=== PATIENT | female | born 1985 | race Caucasian/White ===

== ENCOUNTER 2016-10-23 07:26 | Inpatient (IN) | payer MEDICAID, OTHER ==
[~2016-10-23] VITALS: Ht 152.4 cm; Wt 57.2 kg
[2016-10-23] VITALS (30 sets, daily range): BP systolic 85–109; BP diastolic 45–68
[2016-10-23] MEDS ORDERED: SODIUM CHLORIDE 0.9% 1,000 ML IV ONE (07:44)
[2016-10-23] MEDS ORDERED: ONDANSETRON HCL 4MG/2ML VIAL IV ONE (07:45)
[2016-10-23] MEDS ORDERED: MORPHINE SULFATE 4 MG/ML CPJ (NOT FOR IM USE) IV ONE (07:45)
[2016-10-23 08:47] LABS: BASOPHILS % 0.3 % (0.0-2.0); EOSINOPHILS % 1.5 % (0.0-5.0); HEMATOCRIT. 23.2 % (36.0-48.0); HEMOGLOBIN. 7.7 g/dL (12.0-16.0); MEAN CORPUSCULAR VOLUME 90.7 fL (81.0-99.0); MEAN PLATELET VOLUME 7.5 fl (7.4-10.4); MONOCYTES % 9.1 % (2.0-8.0); NEUTROPHILS % 76.1 % (40.0-76.0); PLATELET 308 x1000/uL (130-400); RED BLOOD CELL COUNT 2.55 mill/uL (4.2-5.4)
[2016-10-23 08:56] LABS: INR 1.1; PARTIAL THROMBOPLASTIN TIME 26.2 sec (23.4-31.0); PROTHROMBIN TIME 11.4 sec (9.4-11.6)
[2016-10-23 09:05] LABS: B-HCG QUANTITATIVE 460 mIU/mL (<3); CARBON DIOXIDE 26 mEq/L (21-32); CHLORIDE 110 mEq/L (98-107)
[2016-10-23] MEDS ORDERED: ALBUMIN HUMAN 12.5G/250ML (5%) IV ONE (12:27)
[2016-10-23 12:53] LABS: BASOPHILS % 0.3 % (0.0-2.0); EOSINOPHILS % 0.1 % (0.0-5.0); HEMATOCRIT. 25.2 % (36.0-48.0); HEMOGLOBIN. 8.3 g/dL (12.0-16.0); LYMPHOCYTES % 9.7 % (20.0-50.0); MEAN CORPUSCULAR HEMOGLOBIN 29.8 pg (28.0-32.0); MEAN CORPUSCULAR VOLUME 90.7 fL (81.0-99.0); MEAN PLATELET VOLUME 7.5 fl (7.4-10.4); MONOCYTES % 4.5 % (2.0-8.0); NEUTROPHILS % 85.4 % (40.0-76.0); PLATELET 228 x1000/uL (130-400); RED BLOOD CELL COUNT 2.78 mill/uL (4.2-5.4); RED CELL DISTRIBUTION WIDTH 14.6 % (11.6-14.6)
[2016-10-23 12:57] LABS: CHLORIDE 111 mEq/L (98-107)
[2016-10-23] MEDS ORDERED: FENTANYL CITRATE/PF 50MCG/ML 2ML VIAL ONE (13:02)
[2016-10-23] MEDS ORDERED: MIDAZOLAM HCL 2 MG/2 ML VIAL ONE (13:02)
[2016-10-23 13:04] LABS: CARBON DIOXIDE 20 mEq/L (21-32)
[2016-10-23] MEDS ORDERED: LABETALOL HCL 20MG/4ML CARPUJECT IV PRN ×2 (13:15)
[2016-10-23] MEDS ORDERED: HYDROMORPHONE HCL/PF 2MG/ML CPJ IV PRN (13:15)
[2016-10-23] MEDS ORDERED: ONDANSETRON HCL 4MG/2ML VIAL IV PRN ×3 (13:15→13:45)
[2016-10-23] MEDS ORDERED: MEPERIDINE HCL/PF 25MG/ML CPJ IV PRN ×2 (13:15)
[2016-10-23] MEDS ORDERED: ROCURONIUM BROMIDE 10MG/ML VIAL 5ML IV ONE (13:39)
[2016-10-23] MEDS ORDERED: ETOMIDATE 2MG/ML 10ML VIAL IV ONE (13:39)
[2016-10-23] MEDS ORDERED: SUCCINYLCHOLINE CHLORIDE 200MG/10ML VIAL IV ONE (13:39)
[2016-10-23] MEDS ORDERED: EPHEDRINE SULFATE 50MG/ML VIAL ONE (13:40)
[2016-10-23] MEDS ORDERED: SODIUM CHLORIDE 0.9% 10ML VIAL ONE (13:40)
[2016-10-23] MEDS ORDERED: NEOSTIGMINE METHYLSULFATE 1MG/ML 10 ML VIAL ONE (13:40)
[2016-10-23] MEDS ORDERED: CEFAZOLIN SODIUM 1000MG/VIAL ONE (13:40)
[2016-10-23] MEDS ORDERED: PHENYLEPHRINE HCL 10 MG/ML 1ML (IV VIAL) IV ONE (13:40)
[2016-10-23] MEDS ORDERED: GLYCOPYRROLATE 0.2 MG/ML 2ML VIAL ONE (13:40)
[2016-10-23] MEDS ORDERED: DEXAMETHASONE 4MG/ML 1ML VIAL ONE (13:40)
[2016-10-23] MEDS ORDERED: ONDANSETRON HCL 4MG/2ML VIAL ONE (13:40)
[2016-10-23] MEDS ORDERED: HYDROMORPHONE HCL/PF 2MG/ML CPJ IM PRN ×2 (13:45→18:00)
[2016-10-23] MEDS ORDERED: BISACODYL 10MG SUPP PR PRN (13:45)
[2016-10-23] MEDS ORDERED: HYDROCODONE/ACETAMINOPHEN 5/325MG TABLET PO PRN ×2 (13:45)
[2016-10-23] MEDS: HYDROMORPHONE HCL/PF 2MG/ML CPJ IV PRN ×5 (14:10→21:50)
[2016-10-23 14:21] LABS: INR 1.2; PARTIAL THROMBOPLASTIN TIME 27.2 sec (23.4-31.0); PROTHROMBIN TIME 12.1 sec (9.4-11.6)
[2016-10-23 15:30] LABS: HEMATOCRIT 23.6 % (36.0-48.0); HEMOGLOBIN 7.9 g/dL (12.0-16.0)
[2016-10-23] MEDS: DEXT 5%/LACTATED RINGERS 1,000 ML IV SCH ×2 (16:02→23:03)
[2016-10-23] MEDS ORDERED: KETOROLAC 30MG/ML VIAL IV NR (16:15)
[2016-10-23] MEDS ORDERED: IBUP-2029 PO (16:48)
[2016-10-23] MEDS ORDERED: DOCU-138 PO (16:49)
[2016-10-23] MEDS ORDERED: OXYC-100 PO (16:50)
[2016-10-23] MEDS ORDERED: FERR-63 PO (16:51)
[2016-10-23] MEDS: SIMETHICONE 80MG TABLET CHEW PO SCH ×2 (18:29→20:06)
[2016-10-23] MEDS: DOCUSATE SODIUM 100MG CAPSULE PO SCH (20:06)
[2016-10-23] MEDS ORDERED: DIPHENHYDRAMINE 25MG CAPSULE PO PRN (21:00)
[2016-10-23 23:05] LABS: HEMATOCRIT 21.9 % (36.0-48.0); HEMOGLOBIN 7.4 g/dL (12.0-16.0)
[2016-10-24] VITALS (47 sets, daily range): BP systolic 85–117; BP diastolic 43–76
[2016-10-24] MEDS: HYDROMORPHONE HCL/PF 2MG/ML CPJ IV PRN ×2 (02:33→05:17)
[2016-10-24 05:49] LABS: BASOPHILS % 0.1 % (0.0-2.0); EOSINOPHILS % 0.1 % (0.0-5.0); LYMPHOCYTES % 7.8 % (20.0-50.0); MEAN CORPUSCULAR VOLUME 87.6 fL (81.0-99.0); MEAN PLATELET VOLUME 7.3 fl (7.4-10.4); MONOCYTES % 7.8 % (2.0-8.0); NEUTROPHILS % 84.2 % (40.0-76.0); PLATELET 255 x1000/uL (130-400); RED BLOOD CELL COUNT 2.31 mill/uL (4.2-5.4); RED CELL DISTRIBUTION WIDTH 14.6 % (11.6-14.6)
[2016-10-24 06:03] LABS: HEMATOCRIT. 20.2 % (36.0-48.0); HEMOGLOBIN. 6.9 g/dL (12.0-16.0)
[2016-10-24] MEDS: IBUPROFEN 400MG TABLET PO PRN ×2 (07:57→22:00)
[2016-10-24] MEDS: SIMETHICONE 80MG TABLET CHEW PO SCH ×4 (08:05→22:06)
[2016-10-24] MEDS: FERROUS SULFATE 325MG TABLET PO SCH ×3 (08:05→18:20)
[2016-10-24] MEDS: DEXT 5%/LACTATED RINGERS 1,000 ML IV SCH ×2 (09:12→18:21)
[2016-10-24 10:17] LABS: HEMATOCRIT 24.4 % (36.0-48.0); HEMOGLOBIN 8.2 g/dL (12.0-16.0)
[2016-10-24] MEDS ORDERED: SODIUM CHLORIDE 0.9% 500 ML IV ONE (13:00)
[2016-10-24] MEDS: DOCUSATE SODIUM 100MG CAPSULE PO SCH (20:59)
[2016-10-25] MEDS: OXYCODONE HCL/ACETAMINOPHEN 5/325MG TABLET PO PRN ×3 (00:18→17:09)
[2016-10-25 04:00] VITALS: BP 88/47
[2016-10-25 08:00] VITALS: BP 95/63
[2016-10-25] MEDS: SIMETHICONE 80MG TABLET CHEW PO SCH ×4 (08:42→20:49)
[2016-10-25] MEDS: FERROUS SULFATE 325MG TABLET PO SCH ×3 (08:43→17:09)
[2016-10-25] MEDS: KETOROLAC 30MG/ML VIAL IV PRN (11:36)
[2016-10-25 12:00] VITALS: BP 94/58
[2016-10-25] MEDS ORDERED: DOCUSATE SODIUM 100MG CAPSULE PO NR (13:45)
[2016-10-25 16:00] VITALS: BP 101/57
[2016-10-25] MEDS ORDERED: METRONIDAZOLE 500 MG PREMIX 100 ML IV SCH (16:45)
[2016-10-25] MEDS ORDERED: ACETAMINOPHEN 325MG TABLET PO PRN (16:45)
[2016-10-25 20:20] LABS: HEMATOCRIT. 29.4 % (36.0-48.0); MEAN CORPUSCULAR HEMOGLOBIN 29.9 pg (28.0-32.0); MEAN CORPUSCULAR VOLUME 87.5 fL (81.0-99.0); MEAN PLATELET VOLUME 7.7 fl (7.4-10.4); PLATELET 279 x1000/uL (130-400); RED BLOOD CELL COUNT 3.36 mill/uL (4.2-5.4); RED CELL DISTRIBUTION WIDTH 14.2 % (11.6-14.6)
[2016-10-25 20:30] VITALS: BP 100/56
[2016-10-25] MEDS: DOCUSATE SODIUM 100MG CAPSULE PO SCH (20:49)
[2016-10-25] MEDS: DOXYCYCLINE 100 MG in DEXT 5% WATER 100 ML IV SCH (20:49)
[2016-10-25] MEDS: METRONIDAZOLE 500MG TABLET PO SCH (22:00)
[2016-10-25 23:14] LABS: PLATELET ESTIMATE NORMAL
[2016-10-26 00:30] VITALS: BP 103/67
[2016-10-26] MEDS: KETOROLAC 30MG/ML VIAL IV PRN ×2 (01:07→12:07)
[2016-10-26] MEDS: AMPICILLIN 2,000 MG in SODIUM CHLORIDE 0.9% 100 ML IV SCH ×4 (01:37→20:46)
[2016-10-26 04:30] VITALS: BP 101/58
[2016-10-26] MEDS: OXYCODONE HCL/ACETAMINOPHEN 5/325MG TABLET PO PRN ×2 (05:03→17:46)
[2016-10-26 06:16] LABS: HEMATOCRIT. 28.3 % (36.0-48.0); HEMOGLOBIN. 9.7 g/dL (12.0-16.0); MEAN CORPUSCULAR HEMOGLOBIN 29.8 pg (28.0-32.0); MEAN CORPUSCULAR VOLUME 87.2 fL (81.0-99.0); MEAN PLATELET VOLUME 7.4 fl (7.4-10.4); PLATELET 280 x1000/uL (130-400); RED BLOOD CELL COUNT 3.25 mill/uL (4.2-5.4); RED CELL DISTRIBUTION WIDTH 14.1 % (11.6-14.6)
[2016-10-26] MEDS: FERROUS SULFATE 325MG TABLET PO SCH ×3 (06:42→17:45)
[2016-10-26 07:38] VITALS: BP 90/54
[2016-10-26] MEDS: DOXYCYCLINE 100 MG in DEXT 5% WATER 100 ML IV SCH ×2 (09:16→22:16)
[2016-10-26] MEDS: METRONIDAZOLE 500MG TABLET PO SCH ×2 (09:16→20:46)
[2016-10-26] MEDS: SIMETHICONE 80MG TABLET CHEW PO SCH ×4 (09:16→20:46)
[2016-10-26] MEDS: IBUPROFEN 400MG TABLET PO PRN ×2 (09:26→22:11)
[2016-10-26 12:00] VITALS: BP 90/52
[2016-10-26 16:08] VITALS: BP 93/59
[2016-10-26 20:00] VITALS: BP 94/58
[2016-10-26] MEDS: DOCUSATE SODIUM 100MG CAPSULE PO SCH (20:46)
[2016-10-27] VITALS: BP 98/50
[2016-10-27] MEDS: KETOROLAC 30MG/ML VIAL IV PRN (00:15)
[2016-10-27 04:00] VITALS: BP 94/58
[2016-10-27] MEDS: AMPICILLIN 2,000 MG in SODIUM CHLORIDE 0.9% 100 ML IV SCH ×3 (04:06→12:57)
[2016-10-27] MEDS: OXYCODONE HCL/ACETAMINOPHEN 5/325MG TABLET PO PRN ×3 (04:07→17:10)
[2016-10-27] MEDS: FERROUS SULFATE 325MG TABLET PO SCH ×3 (07:47→17:13)
[2016-10-27] MEDS: SIMETHICONE 80MG TABLET CHEW PO SCH ×3 (07:47→17:13)
[2016-10-27 08:00] VITALS: BP 96/58
[2016-10-27] MEDS: DOXYCYCLINE 100 MG in DEXT 5% WATER 100 ML IV SCH (09:14)
[2016-10-27] MEDS: METRONIDAZOLE 500MG TABLET PO SCH (09:43)
[2016-10-27 12:00] VITALS: BP_SYST 101; BP_DIAS 59; BP_DIAS 62
[2016-10-27 16:00] VITALS: BP 101/62
[2016-10-27 17:48] VITALS: BP 101/62
[2016-10-27 23:06] LABS: PLATELET ESTIMATE NORMAL
== END 2016-10-27 19:00 | disposition home or self-care (01) | DRG 546 ==
LOC: ER 07:53 → ORIP 12:27 → ER 12:49 → CVICU 15:51 → 8WST 10-24 11:18
PROVIDERS: ADMIT Specialist; ATTEND Specialist
PROC: 0UT70ZZ Resection of Bilateral Fallopian Tubes, Open Approach (ICD-10-PCS; 2016-10-23)
PROC: 0UT90ZZ Resection of Uterus, Open Approach (ICD-10-PCS; 2016-10-23)
PROC: 30233N1 Transfusion of Nonautologous Red Blood Cells into Peripheral Vein, Percutaneous Approach (ICD-10-PCS; principal; 2016-10-23 11:30)
DX: O43.219 Placenta accreta, unspecified trimester (principal); R65.10 Systemic inflammatory response syndrome (SIRS) of non-infectious origin without acute organ dysfunction; I95.9 Hypotension, unspecified; E44.0 Moderate protein-calorie malnutrition; E83.51 Hypocalcemia; N92.1 Excessive and frequent menstruation with irregular cycle; D50.0 Iron deficiency anemia secondary to blood loss (chronic); Z98.891 History of uterine scar from previous surgery; E87.6 Hypokalemia
CPT/HCPCS: 36415; 36430; 76830; 76856; 80053; 81025; 84702; 85014; 85018; 85025; 85610; 85730; 86850; 86900; 86920; 87040; 87077; 87086; 87186; 88302; 96374; 99291; A4216; J0171; J0290; J0330; J0690; J1100; J1170; J1885; J2250; J2370; J2405; J2710; J3010; J3490; J7030; J7040; J7050; J7060; J7070; P9016; P9041; A4315